=== PATIENT | female | born 1985 | race Caucasian/White ===

== ENCOUNTER 2022-01-21 23:20 | Emergency (ER) | payer SELFPAY ==
[~2022-01-21] VITALS: Ht 149.9 cm; Wt 72.0 kg
[2022-01-22] MEDS ORDERED: OLANZAPINE 10 MG/VIAL IM ONE
[2022-01-22 05:40] LABS: BASOPHILS % 0.4 % (0.0-2.0); EOSINOPHILS % 2.9 % (0.0-5.0); HEMATOCRIT. 39.7 % (36.0-48.0); HEMOGLOBIN. 13.2 g/dL (12.0-16.0); LYMPHOCYTES % 27.5 % (20.0-50.0); MEAN CORPUSCULAR VOLUME 87.5 fL (81.0-99.0); MEAN PLATELET VOLUME 7.5 fl (7.4-10.4); MONOCYTES % 11.4 % (2.0-8.0); NEUTROPHILS % 57.8 % (40.0-76.0); PLATELET 441 x1000/uL (130-400); RED BLOOD CELL COUNT 4.54 mill/uL (4.2-5.4); RED CELL DISTRIBUTION WIDTH 13.5 % (11.6-14.6)
[2022-01-22 05:50] LABS: CHLORIDE 108 mEq/L (98-107)
[2022-01-22 05:52] LABS: ETHANOL BLOOD < 10 mg/dL
[2022-01-22 06:00] VITALS: BP 125/72
== END 2022-01-22 06:11 | disposition home or self-care (01) ==
LOC: ER 23:20
DX: T43.621A Poisoning by amphetamines, accidental (unintentional), initial encounter (principal); F15.121 Other stimulant abuse with intoxication delirium; G92.8 Other toxic encephalopathy; R45.1 Restlessness and agitation; Y92.488 Other paved roadways as the place of occurrence of the external cause; F20.9 Schizophrenia, unspecified; F31.9 Bipolar disorder, unspecified; Z59.00 Homelessness unspecified
CPT/HCPCS: 36415; 80053; 80320; 85025; 96372; 99285; J3490; G0480

== ENCOUNTER 2022-03-21 16:03 | Emergency (ER) | payer SELFPAY ==
[~2022-03-21] VITALS: Ht 152.4 cm; Wt 69.0 kg
[2022-03-21 16:11] VITALS: BP 125/89
== END 2022-03-21 21:56 | disposition left against medical advice (07) ==
LOC: ER 16:03
DX: Z53.21 Procedure and treatment not carried out due to patient leaving prior to being seen by health care provider (principal)

== ENCOUNTER 2022-04-05 12:20 | Emergency (ER) | payer MEDICAID ==
[~2022-04-05] VITALS: Ht 152.4 cm; Wt 68.0 kg
[2022-04-05 12:30] VITALS: BP 129/94
== END 2022-04-05 18:58 | disposition left against medical advice (07) ==
LOC: ER 12:20
DX: M79.672 Pain in left foot (principal)
CPT/HCPCS: 99281